=== PATIENT | female | born 1990 | race Caucasian/White ===

== ENCOUNTER 2016-12-29 18:58 | Emergency (ER) | payer OTHER ==
[2016-12-29 18:59] VITALS: BP 122/78; PULSE 101; RESP 24; TEMP 98.5; O2SAT 95
[2016-12-29 19:30] VITALS: PULSE 90; RESP 18; O2SAT 95
--- NOTE | 2016-12-29 20:12 | PD ---
HPI Chief Complaint: Cold / Flu Symptoms Time Seen by Provider: 20:03 Travel History International Travel<30 days: No Contact w/Intl Traveler<30days: No History of Present Illness HPI Patient is a 26-year-old female presenting to emergency evaluation of a cough and cold symptoms. Patient reports feeling short of breath, this is gotten worse over the last few days. Patient reports that her cough is occasionally productive with green sputum. Symptoms started approximately 2 weeks ago. Patient denies any fever, chills, chest pain, abdominal pain, headache, neck pain. She is a smoker but states she's reduced the amount she is smoking since her symptoms started. Patient also reports nasal congestion and runny nose. She denies any significant past medical history. [facility]LY [facility] Past Medical History Medical History: Denies Significant Hx ?: Not LMP: 12/04/16 Past Surgical History Section: Yes Social History Alcohol Use: No Tobacco Use: Yes Allergies-Medications (Allergen,Severity, Reaction): Coded Allergies: No Known Allergies (Verified Allergy, Unknown, 12/29/16) Reported Meds & Prescriptions Reported Meds & Active Scripts Active Proair Hfa 8.5 GM Inh (Albuterol Sulfate) 90 Mcg/Act Aer 2 Puff INH Q4-6H PRN 108 mcg/actuation Prednisone 50 Mg Tab 50 Mg PO DAILY 5 Days Azithromycin 250 Mg Tab 250 Mg PO DAILY 4 Days Review of Systems Except as stated in HPI: all other systems reviewed are Neg HENT: Positive: Rhinorrhea, Congestion Cardiovascular: No: Chest Pain or Discomfort Respiratory: Positive: Cough, Shortness of Breath, Wheezing Gastrointestinal: No: Abdominal Pain Musculoskeletal: No: Myalgias Neurologic: No: Weakness, Dizziness Physical Exam Narrative GENERAL: Well-developed, well-nourished, alert female. Resting comfortably in no acute distress. SKIN: Warm and dry. HEAD: Atraumatic. Normocephalic. EYES: Pupils equal and round. No scleral icterus. No injection or drainage. ENT: No nasal bleeding or discharge. Mucous membranes pink and moist. NECK: Trachea midline. No JVD. CARDIOVASCULAR: Regular rate and rhythm. RESPIRATORY: No accessory muscle use. Expiratory wheezing noted throughout lung rivero. GASTROINTESTINAL: Abdomen soft, non-tender, nondistended. Hepatic and splenic margins not palpable. MUSCULOSKELETAL: Extremities without clubbing, cyanosis, or edema. No obvious deformities. NEUROLOGICAL: Awake and alert. No obvious cranial nerve deficits. Motor grossly within normal limits. Five out of 5 muscle strength in the arms and legs. Normal speech. PSYCHIATRIC: Appropriate mood and affect; insight and judgment normal. Data Data Last Documented VS Vital Signs Date Time Temp Pulse Resp B/P (MAP) Pulse Ox O2 Delivery O2 Flow Rate FiO2 12/29/16 20:41 12/29/16 20:29 21 12/29/16 19:30 90 18 95 Room Air 12/29/16 18:59 98.5 Orders Orders Chest, Pa & Lat (12/29/16 ) Methylprednisolone So Succ Inj (Solumedr (12/29/16 20:15) Albuterol-Ipratropium Neb (Duoneb Neb) (12/29/16 20:15) Budesonide Neb (Pulmicort Respule Neb) (12/29/16 20:15) Azithromycin (Zithromax) (12/29/16 20:30) MDM Medical Decision Making Medical Screen Exam Complete: Yes Emergency Medical Condition: Yes Interpretation(s) Vital Signs Date Time Temp Pulse Resp B/P (MAP) Pulse Ox O2 Delivery O2 Flow Rate FiO2 12/29/16 19:30 90 18 95 Room Air 12/29/16 18:59 98.5 101 24 122/78 (93) 95 Room Air Differential Diagnosis Bronchitis versus pneumonia versus viral URI versus less likely PE versus other Narrative Course Patient presented for evaluation of 2 weeks of a cough which is productive at times. Patient's vital signs are stable, pulse ox is 95% on room air. Expiratory wheezes noted throughout. Chest x-ray, nebulizer treatments and Solu -Medrol ordered. Chest x-ray which was read by the radiologist shows no acute disease. Azithromycin 500 mg 1 dose ordered. Patient was reassessed, lung sounds improved significantly after administration of breathing treatments. Wheezing was no longer audible on exam. Patient was advised that she was given first dose of antibiotics and steroids in the emergency department. She will begin course of antibiotics and steroids tomorrow. She was encouraged to avoid tobacco use. She was encouraged to return to emergency department for any new or worsening symptoms. Patient verbalized understanding of instructions. Patient is stable for discharge. Diagnosis Primary Impression: Acute bronchitis Qualified Codes: J20.9 - Acute bronchitis, unspecified Referrals: [facility] Primary Care Physician 3 days Patient Instructions: Acute Bronchitis (ED), General Instructions Additional Instructions: Start steroids/prednisone and azithromycin tomorrow Complete full course of antibiotics as prescribed Avoid tobacco use Follow-up with your primary doctor Return to emergency department for any new or worsening symptoms Med/Other Pt SpecificInfo: Prescription(s) given Scripts Albuterol 8.5 GM Inh (Proair Hfa 8.5 GM Inh) 90 Mcg/Act Aer 2 PUFF INH Q4-6H Y for SHORTNESS OF BREATH, #1 INHALER 0 Refills 108 mcg/actuation Prov: Anjali Brand 12/29/16 Prednisone (Prednisone) 50 Mg Tab 50 MG PO DAILY for 5 Days, #5 TAB 0 Refills Prov: Anjali Brand 12/29/16 Azithromycin (Azithromycin) 250 Mg Tab 250 MG PO DAILY for Infection for 4 Days, #4 TAB 0 Refills Prov: Anjali Brand 12/29/16 Disposition: 01 DISCHARGE HOME Condition: Stable Anjali Brand Dec 29, 2016 20:12
[2016-12-29] MEDS ORDERED: RESP: BUDESONIDE 0.5 MG/2 ML NEB NEB ONE (20:15)
[2016-12-29] MEDS ORDERED: methylPREDNISolone SOD SUCC 125 MG/2 ML VIAL IM ONE (20:15)
--- NOTE | 2016-12-29 20:24 | RADRPT ---
EXAM DATE/TIME: 12/29/2016 20:21 [place] COMPARISON: No previous studies available for comparison. INDICATIONS : Wheezing. MEDICAL HISTORY : None. SURGICAL HISTORY : None. ENCOUNTER: Initial ACUITY: 2 weeks PAIN SCORE: 0/10 LOCATION: Bilateral chest FINDINGS: PA and lateral views of the chest demonstrate the lungs to be symmetrically aerated without evidence of mass, infiltrate or effusion. The cardiomediastinal contours are unremarkable. Osseous structure s are intact. CONCLUSION: Normal examination. Cal Portillo MD on December 29, 2016 at 20:23 Board Certified Radiologist. This report was verified electronically.
[2016-12-29] MEDS: RESP: ALBUTEROL 2.5 MG/IPRATROPIUM 0.5 MG NEB (SCH) INH ×3 (20:27→20:29)
[2016-12-29] MEDS ORDERED: AZITHROMYCIN 250 MG TAB PO ONE (20:30)
[2016-12-29] MEDS ORDERED: AZIT250T3 PO (20:31)
[2016-12-29] MEDS ORDERED: ALBUAER3 INH (20:31)
[2016-12-29] MEDS ORDERED: PRED50 PO (20:31)
== END 2016-12-29 21:05 | disposition home or self-care (01) ==
LOC: NEPK 18:58
DX: J20.9 Acute bronchitis, unspecified (principal); Z72.0 Tobacco use
CPT/HCPCS: 71020; 94640; 94664; 96372; 99285; J2930; J7626